=== PATIENT | female | born 1995 | race Caucasian/White ===

== ENCOUNTER 2018-02-20 11:59 | Emergency (ER) | payer MEDICAID ==
[2018-02-20 12:10] VITALS: BP 118/86; PULSE 98; RESP 18; TEMP 98.9; O2SAT 98
--- NOTE | 2018-02-20 12:30 | C.PDOC ---
History Of Present Illness 22 year old female presents to the emergency department with complaints of a sore throat that has been present for the past 3 weeks. Patient states that she has been taking Amoxicillin for the past three weeks. She first started antibiotic prior to wisdom tooth extraction. She then complained of pain and her primary medical doctor prescribed another week of Amoxicillin. She felt improvement for few days and then had pain to throat, and saw her doctor yesterday who prescribed another week of Amoxicillin, which she is currently taking twice a day. Additionally, patient complains of puffiness and occasional itching to her eyes. Time Seen by Provider: 02/20/18 12:11 Chief Complaint (Nursing): Allergic Reaction History Per: Patient History/Exam Limitations: None Onset/Duration Of Symptoms: Other (1 month) Quality (Mouth/Throat): Other (soreness) Symptoms Have Been: Continuous Past Medical History Reviewed: Historical Data, Nursing Documentation, Vital Signs Vital Signs: Last Vital Signs Temp 98.9 F 02/20/18 12:05 Pulse 98 H 02/20/18 12:05 Resp 18 02/20/18 12:05 BP 118/86 02/20/18 12:05 Pulse Ox 98 02/20/18 14:26 - Medical History PMH: Anemia, Hyperthyroidism Surgical History: No Surg Hx Family History: States: No Known Family Hx - Social History Hx Alcohol Use: No Hx Substance Use: No - Immunization History Hx Tetanus Toxoid Vaccination: No Hx Influenza Vaccination: No Hx Pneumococcal Vaccination: No Review Of Systems Except As Marked, All Systems Reviewed And Found Negative. Eyes: Positive for: Eyelid Inflammation ENT: Positive for: Throat Pain Physical Exam - Physical Exam Appears: Non-toxic, No Acute Distress Skin: Warm, Dry, No Rash Head: Atraumatic, Normacephalic Eye(s): bilateral: PERRL, EOMI, Eyelid Inflammation Ear(s): Bilateral: Normal Nose: No Flaring, No Discharge Oral Mucosa: Moist Tongue: Normal Appearing, No Swelling Lips: Normal Appearing, No Swelling Throat: Erythema (mild), No Exudate, No Drooling, No Mass Neck: Normal ROM Lymphatic: Normal Exam, No Adenopathy Chest: Symmetrical Cardiovascular: Rhythm Regular, No Murmur Respiratory: Normal Breath Sounds, No Wheezing Extremity: Bilateral: Atraumatic, Normal Color And Temperature, Normal ROM Neurological/Psych: Oriented x3, Normal Speech ED Course And Treatment O2 Sat by Pulse Oximetry: 98 (RA) Pulse Ox Interpretation: Normal Medical Decision Making Medical Decision Making: Plan: Claritin 10mg PO Throat Culture Rapid Strep Group A Antigen Patient with no signs of distress, and throat exam does not clinically appear to be strep. Patient already on Amoxil. I recommend fluids, lozenges, and daily anthistamine. Patient advised to follow up with ENT for chronic throat pain. Disposition Counseled Patient/Family Regarding: Diagnosis, Need For Followup - Disposition Referrals: Duc Nava MD [Staff Provider] - Disposition: HOME/ ROUTINE Disposition Time: 12:29 Condition: STABLE Additional Instructions: Please follow up with ENT Take antihistamine daily Instructions: Sore Throat in Adults Forms: [employer] (Urdu) - POA Present On Arrival: None - Clinical Impression Clinical Impression: Chronic throat pain - PA / TECHNICAL SERVICES LIBRARIAN / Resident Statement MD/DO has reviewed & agrees with the documentation as recorded. - Scribe Statement The provider has reviewed the documentation as recorded by the Scribe (Franklyn Montague) All medical record entries made by the Scribe were at my direction and personally dictated by me. I have reviewed the chart and agree that the record accurately reflects my personal performance of the history, physical exam, medical decision making, and the department course for this patient. I have also personally directed, reviewed, and agree with the discharge instructions and disposition.
== END 2018-02-20 12:55 | disposition home or self-care (01) ==
LOC: C.ER 11:59
DX: G89.29 Other chronic pain (principal); R07.0 Pain in throat